=== PATIENT | male | born 1950 | race Caucasian/White ===

== ENCOUNTER 2018-05-17 12:59 | Day surgery (SDC) | payer MEDICARE, BC ==
[~2018-05-17 12:59] MED LIST: CEFAZOLIN 2 Gram 2 GM/50 ML BAG IVPB ONE
[2018-05-17] MEDS ORDERED: PROPOFOL 10 MG/ML VIAL IV ONE (13:00)
[2018-05-17] MEDS ORDERED: MIDAZOLAM HCL 2MG/2ML VIAL IV ONE (13:00)
[2018-05-17] MEDS ORDERED: LIDOCAINE 2% MDV (20MG/ML) 20ML VIAL IV ONE (13:00)
== END 2018-05-17 16:26 | disposition home or self-care (01) ==
LOC: SUR 12:59
PROVIDERS: ATTEND Urology
DX: R97.20 Elevated prostate specific antigen [PSA] (principal); C61 Malignant neoplasm of prostate; N40.3 Nodular prostate with lower urinary tract symptoms; C71.9 Malignant neoplasm of brain, unspecified
CPT/HCPCS: 52000; 76872; 00910; 88305; 55700; 76942; J0690

== ENCOUNTER 2019-02-12 18:27 | Emergency (ER) | payer MEDICARE, BC ==
[2019-02-12 19:18] LABS: ABSOLUTE NEUTROPHIL COUNT 4.06; BASO % 0.2 % (0-6); EOS % 1.3 % (0-6); GRAN % 65.7 % (47-80); HEMATOCRIT 41.6 % (42.0-52.0); HEMOGLOBIN 14.3 gm/dl (14.0-18.0); LYMPH % 22.4 % (16-45); MEAN CELL VOLUME 87.9 fl (81-97); MEAN CORPUSCULAR HEMOGLOBIN 30.2 pg (27-33); MEAN CORPUSCULAR HGB CONC 34.4 g/dl (32-36); MEAN PLATELET VOLUME 9.9 fl (7.4-10.4); MONO % 10.4 % (0-9); PLATELET COUNT 205 K/uL (130-400); RED BLOOD COUNT 4.73 M/uL (4.40-5.70); RED CELL DISTRIBUTION WIDTH 13.9 % (11.5-14.5); WHITE BLOOD COUNT W/O DIFF 6.2 K/uL (4.2-12.2)
[2019-02-12 19:32] LABS: BLOOD UREA NITROGEN 19 mg/dL (8-23); EST GLOMERULAR FILTRATION RATE > 60 mL/min; TOTAL PROTEIN 6.8 g/dL (6.6-8.7)
[2019-02-12 19:35] LABS: GLUCOSE,RANDOM 123 mg/dL (74-109)
[2019-02-12 19:37] LABS: ALB/GLOB RATIO 1.7 (1.1-1.8); ALBUMIN 4.3 g/dL (4.0-5.0); ALKALINE PHOSPHATASE 63 U/L (40-129); ALT/SGPT 26 U/L (<41); AST/SGOT 18 U/L (10.0-50.0)
[2019-02-12 20:02] LABS: URINE APPEARANCE CLEAR; URINE BILIRUBIN NEGATIVE (NEGATIVE); URINE BLOOD NEGATIVE (NEGATIVE); URINE COLOR YELLOW; URINE GLUCOSE (UA) NEGATIVE (NEGATIVE); URINE KETONE NEGATIVE (NEGATIVE); URINE LEUKOCYTE ESTERASE NEGATIVE (NEGATIVE); URINE NITRITE NEGATIVE (NEGATIVE); URINE PROTEIN NEGATIVE (NEGATIVE); URINE UROBILINOGEN 0.2 E.U./dL (0.20 - 1.00)
--- NOTE | 2019-02-12 20:03 | CT SCAN REPORT ---
EXAMINATION: HEAD WO CONTRAST EXAM DATE: 02/12/2019 7:47 PM TECHNIQUE: Noncontrast axial images were obtained to the brain. INDICATION: confusion. History of glioblastoma. COMPARISON: Prior report from outside MR 02/09/2019 ENCOUNTER: Not applicable. HAND DOMINANCE: Unknown FINDINGS: A lily hole is demonstrated in the left frontal bone. Calcification in the periventricular frontal lobe measures 11 x 8 mm. Adjacent parenchymal hypoattenu ation with mild encephalomalacia. This presumably represents treated brain neoplasm Low-attenuation confluent areas in the periventricular and subcortical white matterThe brain parenchy ma is otherwise unremarkable. No loss of ochoa-white matter differentiation or sulcal effacement to in dicate acute infarction. No other evidence of intracranial mass. There is enlargement of the ventricles, sulci, and subarachnoid spaces. No hydrocephalus. No intra-axial or extra-axial fluid collection. No evidence of acute intracranial hemorrhage. The paranasal sinuses, mastoid air cells, and orbits are unremarkable. The calvarium is otherwise intact. IMPRESSION: 1. No CT evidence of intracranial hemorrhage or acute intracranial abnormality. 2. Left frontal periventricular focal cortical calcification with adjacent parenchymal hypoattenuati on, presumed to represent treated glioblastoma 3. Moderate white matter hypoattenuation most commonly represents chronic microvascular ischemic dis ease. 4. Mild cerebral and cerebellar volume loss, consistent with age. A Red Critical Result was communicated to Dr. Felisa Alfaro at 02/12/2019 7:54 PM Dictated by: KRYSTEN COFFEY MD on 02/12/2019 7:53 PM. .
--- NOTE | 2019-02-12 21:10 | Emergency Department Record ---
History of Present Illness - General Chief Complaint: Fall Injury Stated Complaint: FALLING,CONFUSION, Time Seen by Provider: 02/12/19 19:02 Source: Patient, Family Mode of Arrival: Ambulatory Limitations: No limitations - History of Present Illness Initial Comments: pt brought in because he had a 30 minute time of confusion and then he fell. he has a hx of glioblastoma and craniotomy. he has residual r sided deficits from previous events. he has had problems w balance in the past but this was the longest episode of confusion he has ever had. he has improved. he slid to the floor and was not injured with the fall MD Complaint: Fall -: Hour(s) Fall From: Standing When Fall Occurred: 1 hour DIRECTOR Fall Witnessed: Yes, by family Place Fall Occurred: Home Loss of Consciousness: None Symptoms Prior to Fall: None Associated Symptoms: Denies - [place] Coma Scale Eye Response: (4) Open spontaneously Motor Response: (6) Obeys commands Verbal Response: (4) Confused conversation [place] Total: 14 - Related Data Home Medications Medication Instructions Recorded Confirmed Last Taken No Home Med [NO HOME MEDS] 02/12/19 02/12/19 Unknown Allergies Allergy/AdvReac Type Severity Reaction Status Date / Time No Known Drug Allergies Allergy Verified 05/08/14 18:31 Travel Screening - Travel/Exposure Within Last 30 Days Have you traveled within the last 30 days?: No - Travel Symptoms Symptom Screening: Weakness Review of Systems Reviewed: No additional complaints except as noted below Constitutional: Reports: As per HPI. Denies: Chills, Fever, Malaise, Night sweats, Weakness, Weight change Eyes: Reports: As per HPI. Denies: Eye discharge, Eye pain, Photophobia, Vision change ENT: Reports: As per HPI. Denies: Congestion, Dental pain, Ear pain, Epistaxis, Hearing loss, Throat pain Respiratory: Reports: As per HPI. Denies: Cough, Dyspnea, Hemoptysis, Stridor, Wheezes Cardiovascular: Reports: As per HPI. Denies: Arrhythmia, Chest pain, Dyspnea on exertion, Edema, Murmurs, Orthopnea, Palpitations, Paroxysmal nocturnal dyspnea, Rheumatic Fever, Syncope Endocrine: Reports: As per HPI. Denies: Fatigue, Heat or cold intolerance, Polydipsia, Polyuria Gastrointestinal: Reports: As per HPI. Denies: Abdominal pain, Constipation, Diarrhea, Hematemesis, Hematochezia, Melena, Nausea, Vomiting Genitourinary: Reports: As per HPI. Denies: Dysuria, Frequency, Hematuria, In continence, Retention, Testicular pain, Testicular mass, Urgency Musculoskeletal: Reports: As per HPI. Denies: Arthralgia, Back pain, Gout, Joint swelling, Myalgia, Neck pain Skin: Reports: As per HPI. Denies: Bruising, Change in color, Change in h air/nails, Lesions, Pruritus, Rash Neurological: Reports: As per HPI, Confusion, Weakness. Denies: Abnormal gait, Headache, Numbness, Paresthesias, Seizure, Tingling, Tremors, Vertigo Psychiatric: Reports: As per HPI. Denies: Anxiety, Auditory hallucinations, Depression, Homicidal thoughts, Suicidal thoughts, Visual hallucinations Hematological/Lymphatic: Reports: As per HPI. Denies: Anemia, Blood Clots, Easy bleeding, Easy bruising, Swollen glands Past Medical History - SOCIAL HISTORY Smoking Status: Former smoker Alcohol Use: None Drug Use: None - RESPIRATORY Hx Respiratory Disorders: Yes Hx Bronchitis: Yes (IN PAST) Comment:: NODULE IN CHEST CAVITY DX'D YRS AGO BEING MONOTORED. HX PLEURISY - CARDIOVASCULAR Hx Cardio Disorders: No - NEURO Hx Neuro Disorders: Yes Hx Brain Tumor: Yes (GLIOBLASTOMA INOPERABLE HAD CHEMO AND RADIATION TX 5 YRS AGO) Hx Dementia: Yes Hx Dizziness: Yes Hx Headaches: Yes (OCCASSIONALLY) Hx Seizures: Yes (A FEW AT TIMES R/T TUMOR) Hx TIA: Yes (POSSIBLY) Hx Weakness: Yes (GENERALIZED) - GI Hx GI Disorders: No - Hx Genitourinary Disorders: Yes Hx Bladder Problem: Yes (URINATING FREQUENTLY SMALL AMTS) Hx Prostate Problems: Yes - ENDOCRINE Hx Endocrine Disorders: Yes Hx Diabetes: Yes (BOARDERLINE NO MEDS YET CUTTING BACK ON SUGAR) - MUSCULOSKELETAL Hx Musculoskeletal Disorders: Yes Hx Arthritis: Yes - PSYCH Hx Psych Problems: Yes Hx Behavior Problems: Yes (AGITATED AND SHORT TEMPERED AT TIMES) - HEMATOLOGY/ONCOLOGY Hx Hematology/Oncology Disorders: Yes Hx Cancer: Yes (GLIOBLASTOMA 5 YRS AGO INOPERABLE) Hx Chemotherapy: Yes Hx Radiation Therapy: Yes Family Medical History Any Significant Family History?: Yes Hx Alcohol Use: Father Hx Cancer: Grandparents Hx Heart Disease: Mother, Grandparents Hx Liver Disease: Father Physical Exam - General General Appearance: Alert, Oriented x3, Cooperative, Mild distress - Head Head exam: Normal inspection - Eye Eye exam: Normal appearance, PERRL, EOMI Pupils: Normal accommodation - ENT ENT exam: Normal exam, Mucous membranes moist, Normal external ear exam, Normal orophraynx Ear exam: Normal external inspection. negative: External canal tenderness Nasal Exam: Normal inspection. negative: Discharge, Sinus tenderness Mouth exam: Normal external inspection, Tongue normal Teeth exam: Normal inspection. negative: Dental caries Throat exam: Normal inspection. negative: Tonsillar erythema, Tonsillar exudate - Neck Neck exam: Normal inspection, Full ROM. negative: Tenderness - Respiratory Respiratory exam: Normal lung sounds bilaterally. negative: Respiratory distress - Cardiovascular Cardiovascular Exam: Normal rhythm, Normal heart sounds, Bradycardia - GI/Abdominal GI/Abdominal exam: Soft, Normal bowel sounds. negative: Tenderness - Rectal Rectal exam: Deferred - exam: Deferred - Extremities Extremities exam: Normal inspection, Full ROM, Normal capillary refill. ne gative: Tenderness - Back Back exam: Reports: Normal inspection, Full ROM. Denies: Muscle spasm, Rash noted, Tenderness - Neurological Neurological exam: Alert, CN II-XII intact, Motor sensory deficit (r sided deficits), Oriented X3. negative: Normal gait - Psychiatric Psychiatric exam: Normal affect, Normal mood - Skin Skin exam: Dry, Intact, Normal color, Warm Course Vital Signs 02/12/19 02/12/19 02/12/19 18:52 19:26 20:21 Temperature 98.8 F Pulse Rate 51 L Pulse Rate [ 50 L 50 L [employer] Installations [employer]ic ] Respiratory 18 18 18 Rate Blood Pressure 177/90 Blood Pressure 176/86 176/81 [Left Arm] Pulse Ox 94 L 97 - Reevaluation(s) Reevaluation #1: 02/12/19 21:11 d/w neurosurgeon and hospitalist Reevaluation #2: 02/12/19 21:12 stated several times she cant handle pt. Medical Decision Making - Lab Data Result diagrams: 02/12/19 19:00 02/12/19 19:00 Lab Results 02/12/19 02/12/19 02/12/19 Range/Units 19:00 19:00 19:55 WBC 6.2 (4.2-12.2) K/uL RBC 4.73 (4.40-5.70) M/uL Hgb 14.3 (14.0-18.0) gm/dl Hct 41.6 L (42.0-52.0) % MCV 87.9 (81-97) fl MCH 30.2 (27-33) pg MCHC 34.4 (32-36) g/dl RDW 13.9 (11.5-14.5) % Plt Count 205 (130-400) K/uL MPV 9.9 (7.4-10.4) fl Gran % 65.7 (47-80) % Lymphocytes % 22.4 (16-45) % Monocytes % 10.4 H (0-9) % Eosinophils % 1.3 (0-6) % Basophils % 0.2 (0-6) % Absolute Neutrophils 4.06 Sodium 139 (136-145) mmol/L Potassium 4.2 (3.4-4.5) mmol/L Chloride 102 (98-107) mmol/L Carbon Dioxide 25.0 (22-29) mmol/L Anion Gap 12.0 (7-16) BUN 19 (8-23) mg/dL Creatinine 1.0 (0.7-1.2) mg/dL Estimated GFR > 60 mL/min Random Glucose 123 H (74-109) mg/dL Calcium 9.1 (8.8-10.2) mg/dL Total Bilirubin 1.20 H (0.2-1.0) mg/dL AST 18 (10.0-50.0) U/L ALT 26 (<41) U/L Alkaline Phosphatase 63 (40-129) U/L Total Protein 6.8 (6.6-8.7) g/dL Albumin 4.3 (4.0-5.0) g/dL Globulin 2.5 (1.4-4.8) gm/dL Albumin/Globulin Ratio 1.7 (1.1-1.8) Urine Color Yellow Urine Appearance Clear Urine pH 5.5 (5.0-8.0) Ur Specific [place] >= 1.030 (1.002-1.030) Urine Protein Negative (NEGATIVE) Urine Glucose (UA) Negative (NEGATIVE) Urine Ketones Negative (NEGATIVE) Urine Blood Negative (NEGATIVE) Urine Nitrite Negative (NEGATIVE) Urine Bilirubin Negative (NEGATIVE) Urine Urobilinogen 0.2 (0.20 - 1.00) E.U./dL Ur Leukocyte Esterase Negative (NEGATIVE) Disposition Disposition: Transfer Clinical Impression: Confusion Change in mental status Qualifiers: Altered mental status type: unspecified Qualified Code(s): R41.82 - Altered mental status, unspecified Fall Qualifiers: Encounter type: initial encounter Qualified Code(s): W19.XXXA - Unspecified fall, initial encounter Disposition: Acute Care Hospital Transfer Transfer To: [facility] Reason For Transfer: needs neurology Accepting Physician: dr palacio Time Discussed w/Accepting Physician: 21:16 Quality - Quality Measures Quality Measures: N/A - Blood Pressure Screening Does Patient Have Any of the Following: No Blood Pressure Classification: Hypertensive Reading Systolic Measurement: 177 Diastolic Measurement: 90 Screening for High Blood Pressure: < First Hypertensive BP, F/U Documented > [G8950] First Hypertensive Follow-up Interventions: Follow-up with rescreen GT 1 day and LT 4 weeks.
== END 2019-02-12 21:35 | disposition short-term general hospital (02) ==
LOC: ER 18:27
DX: R41.82 Altered mental status, unspecified (principal); C61 Malignant neoplasm of prostate; Z91.81 History of falling; Z87.891 Personal history of nicotine dependence; Z85.841 Personal history of malignant neoplasm of brain
CPT/HCPCS: 70450; 80053; 81003; 85025; 93005; 93010; 99285